=== PATIENT | male | born 1965 | race Caucasian/White ===

== ENCOUNTER 2021-01-23 10:12 | Inpatient (IN) | payer OTHER ==
[~2021-01-23] VITALS: Ht 175.3 cm; Wt 94.6 kg
[2021-01-23] MEDS ORDERED: METH10SO PO (10:27)
[2021-01-23] MEDS ORDERED: HTN MED PO (10:27)
[2021-01-23] MEDS ORDERED: ONDANSETRON HCL 4 MG/2 ML VIAL IVP ONE (11:00)
[2021-01-23] MEDS ORDERED: SODIUM CHLORIDE 0.9% 1,000 ML IV ONE ×2 (11:00→12:30)
[2021-01-23] MEDS ORDERED: LORazepam 1 MG TABLET PO ONE (11:00)
[2021-01-23 11:28] LABS: COVID AG,FIA SOURCE NASOPHARYNGEAL
[2021-01-23 11:31] LABS: BASOPHILS % (AUTO) 0.7 % (0.0-2.0); EOSINOPHILS % (AUTO) 0.2 % (1.0-6.0); HEMOGLOBIN 14.4 g/dL (13.5-17.5); LYMPHOCYTES # (AUTO) 2.1 K/uL (1.0-4.8); LYMPHOCYTES % (AUTO) 24.5 % (22.0-44.0); MEAN CORPUSCULAR HGB CONC 34.3 G/dL (31.0-37.0); MEAN CORPUSCULAR VOLUME 90 fL (80-100); MONOCYTES # (AUTO) 0.6 K/uL (0.1-1.0); MONOCYTES % (AUTO) 6.7 % (2.0-9.0); NEUTROPHILS # (AUTO) 5.8 K/uL (1.8-7.7); NEUTROPHILS % (AUTO) 67.9 % (40.0-70.0); PLATELET COUNT (AUTO) 281 K/uL (150-450); RED BLOOD CELL COUNT(AUTO) 4.65 MIL/uL (4.50-5.90)
[2021-01-23 11:40] LABS: ANION GAP 5 mmol/L (8-16); CALCIUM, TOTAL 8.7 mg/dL (8.8-10.5); CARBON DIOXIDE 29 mmol/L (22-29); CHLORIDE 98 mmol/L (98-107); CREATININE 0.84 mg/dL (0.60-1.30); GLOMERULAR FILTR. RATE CALC > 60 mL/min (>60); GLUCOSE,RANDOM 101 mg/dL (70-110); POTASSIUM 3.2 mmol/L (3.5-5.1); SODIUM SERUM 132 mmol/L (136-145); UREA NITROGEN, BLOOD 10 mg/dL (7-18)
[2021-01-23 11:49] LABS: ALANINE AMINOTRANSFERASE 20 U/L (12-78); ALBUMIN 3.8 g/dL (3.4-5.0); ALKALINE PHOSPHATASE 88 U/L (46-116); ASPARTATE AMINOTRANSFERASE 14 U/L (15-37); BILIRUBIN,TOTAL 0.4 mg/dL (0.1-1.0); TOTAL PROTEIN, SERUM 7.7 g/dL (6.4-8.2)
[2021-01-23] MEDS ORDERED: POTASSIUM CHLORIDE 20 MEQ ER TABLET PO ONE (12:00)
[2021-01-23 12:27] LABS: AMPHET/METH SCREEN,URINE POSITIVE (NEGATIVE); BARBITURATE SCREEN, URINE NEGATIVE (NEGATIVE); BENZODIAZEPINES SCREEN,URINE POSITIVE (NEGATIVE); CANNABINOID SCREEN,URINE NEGATIVE (NEGATIVE); COCAINE SCREEN,URINE NEGATIVE (NEGATIVE); METHADONE SCREEN, URINE POSITIVE (NEGATIVE); OPIATE SCREEN,URINE POSITIVE (NEGATIVE)
[2021-01-23] MEDS ORDERED: POTASSIUM CHLORIDE 20 MEQ ER TABLET PO PRN (12:30)
[2021-01-23] MEDS ORDERED: POTASSIUM CHL 10 MEQ/WATER 50 ML IV PRN (12:30)
[2021-01-23 12:35] LABS: PHENCYCLIDINE SCREEN,URINE NEGATIVE (NEGATIVE)
[2021-01-23] MEDS: DULoxetine HCL 30 MG CAPSULE PO SCH (13:11)
[2021-01-23] MEDS: METHADONE HCL 10 MG TABLET PO SCH (13:12)
[2021-01-23] MEDS: HEPARIN SODIUM,PORCINE 5,000 UNITS/ML VIAL SQ SCH ×2 (15:48→23:34)
[2021-01-23 17:07] VITALS: BP 133/89
[2021-01-23] MEDS ORDERED: PNEUMOCOCCAL VACCINE POLYVALENT 0.5 ML VIAL [PPSV23] IM. ONE (18:00)
[2021-01-23 19:30] VITALS: BP 114/67
[2021-01-23] MEDS: ZOLPIDEM TARTRATE 5 MG TABLET PO PRN (23:46)
[2021-01-24] MEDS: ACETAMINOPHEN 325 MG TABLET PO PRN ×2 (04:02→08:21)
[2021-01-24 04:05] VITALS: BP 110/71
[2021-01-24] MEDS: METHADONE HCL 10 MG TABLET PO SCH (08:20)
[2021-01-24] MEDS: FAMOTIDINE 20 MG TABLET PO SCH (08:21)
[2021-01-24] MEDS: DULoxetine HCL 30 MG CAPSULE PO SCH (08:21)
[2021-01-24] MEDS: HEPARIN SODIUM,PORCINE 5,000 UNITS/ML VIAL SQ SCH ×2 (08:21→16:54)
[2021-01-24 08:33] VITALS: BP 111/71
[2021-01-24] MEDS: MAGNESIUM HYDROXIDE SUSPENSION 30 ML UDCUP PO PRN (17:54)
[2021-01-24 19:21] VITALS: BP 114/69
[2021-01-25] MEDS: HEPARIN SODIUM,PORCINE 5,000 UNITS/ML VIAL SQ SCH ×4 (00:13→23:25)
[2021-01-25 05:11] VITALS: BP 117/80
[2021-01-25 08:07] VITALS: BP 122/74
[2021-01-25] MEDS: MAGNESIUM HYDROXIDE SUSPENSION 30 ML UDCUP PO PRN (08:36)
[2021-01-25] MEDS: FAMOTIDINE 20 MG TABLET PO SCH (08:36)
[2021-01-25] MEDS: DULoxetine HCL 30 MG CAPSULE PO SCH (08:36)
[2021-01-25] MEDS: METHADONE HCL 10 MG TABLET PO SCH (08:36)
[2021-01-25 19:40] VITALS: BP 111/72
[2021-01-25] MEDS: ZOLPIDEM TARTRATE 5 MG TABLET PO PRN (20:09)
[2021-01-26 04:20] VITALS: BP 102/56
[2021-01-26 08:03] VITALS: BP 98/56
[2021-01-26] MEDS: METHADONE HCL 10 MG TABLET PO SCH (08:52)
[2021-01-26] MEDS: HEPARIN SODIUM,PORCINE 5,000 UNITS/ML VIAL SQ SCH ×3 (08:53→23:09)
[2021-01-26] MEDS: DULoxetine HCL 30 MG CAPSULE PO SCH (08:53)
[2021-01-26] MEDS: FAMOTIDINE 20 MG TABLET PO SCH (08:53)
[2021-01-26 17:14] VITALS: BP 94/62
[2021-01-26 20:11] VITALS: BP 102/66
[2021-01-26] MEDS: ZOLPIDEM TARTRATE 5 MG TABLET PO PRN (22:54)
[2021-01-27 04:00] VITALS: BP 96/54
[2021-01-27 08:00] VITALS: BP 99/52
[2021-01-27] MEDS: HEPARIN SODIUM,PORCINE 5,000 UNITS/ML VIAL SQ SCH ×2 (08:22→16:17)
[2021-01-27] MEDS: DULoxetine HCL 30 MG CAPSULE PO SCH (08:23)
[2021-01-27] MEDS: FAMOTIDINE 20 MG TABLET PO SCH (08:23)
[2021-01-27] MEDS: ACETAMINOPHEN 325 MG TABLET PO PRN (08:30)
[2021-01-27] MEDS ORDERED: METHADONE HCL 10 MG TABLET PO SCH (09:00)
[2021-01-27] MEDS: TraMADol HCL 50 MG TABLET PO PRN ×2 (09:59→18:21)
[2021-01-27] MEDS: MIRTAZAPINE 15 MG TABLET PO SCH (20:12)
[2021-01-27] MEDS: ZOLPIDEM TARTRATE 5 MG TABLET PO PRN (20:13)
[2021-01-27 20:21] VITALS: BP 96/54
[2021-01-28 03:46] VITALS: BP 100/58
[2021-01-28 08:15] VITALS: BP 101/66
[2021-01-28] MEDS: TraMADol HCL 50 MG TABLET PO PRN ×2 (08:20→16:32)
[2021-01-28] MEDS: FAMOTIDINE 20 MG TABLET PO SCH (08:20)
[2021-01-28] MEDS: HEPARIN SODIUM,PORCINE 5,000 UNITS/ML VIAL SQ SCH ×4 (08:22→23:28)
[2021-01-28] MEDS ORDERED: DULoxetine HCL 60 MG CAPSULE PO SCH (09:00)
[2021-01-28] MEDS: ACETAMINOPHEN 325 MG TABLET PO PRN (15:08)
[2021-01-28] MEDS: HydrOXYzine PAMOATE 50 MG CAPSULE PO PRN ×2 (15:11→22:51)
[2021-01-28 20:10] VITALS: BP 104/70
[2021-01-28] MEDS: MIRTAZAPINE 15 MG TABLET PO SCH (20:20)
[2021-01-28] MEDS: ZOLPIDEM TARTRATE 5 MG TABLET PO PRN (22:51)
[2021-01-29 05:30] VITALS: BP 99/69
[2021-01-29] MEDS: FAMOTIDINE 20 MG TABLET PO SCH (08:16)
[2021-01-29] MEDS: HEPARIN SODIUM,PORCINE 5,000 UNITS/ML VIAL SQ SCH ×3 (08:16→23:31)
[2021-01-29 08:23] VITALS: BP 101/59
[2021-01-29] MEDS: HydrOXYzine PAMOATE 50 MG CAPSULE PO PRN ×2 (13:59→17:57)
[2021-01-29 19:40] VITALS: BP 121/72
[2021-01-29] MEDS: MIRTAZAPINE 15 MG TABLET PO SCH (19:40)
[2021-01-29] MEDS: ZOLPIDEM TARTRATE 5 MG TABLET PO PRN (19:40)
[2021-01-30 04:30] VITALS: BP 104/55
[2021-01-30] MEDS: HydrOXYzine PAMOATE 50 MG CAPSULE PO PRN ×3 (06:54→17:57)
[2021-01-30] MEDS: ACETAMINOPHEN 325 MG TABLET PO PRN ×2 (08:14→17:17)
[2021-01-30] MEDS: FAMOTIDINE 20 MG TABLET PO SCH (08:14)
[2021-01-30] MEDS: HEPARIN SODIUM,PORCINE 5,000 UNITS/ML VIAL SQ SCH ×2 (08:14→16:26)
[2021-01-30 08:47] VITALS: BP 100/57
[2021-01-30] MEDS: TraMADol HCL 50 MG TABLET PO PRN (16:26)
[2021-01-30] MEDS: ZOLPIDEM TARTRATE 5 MG TABLET PO PRN (19:50)
[2021-01-30] MEDS: MIRTAZAPINE 30 MG TABLET PO SCH (19:50)
[2021-01-30 20:18] VITALS: BP 128/90
[2021-01-31 04:40] VITALS: BP 102/60
[2021-01-31] MEDS: TraMADol HCL 50 MG TABLET PO PRN ×2 (04:41→15:13)
[2021-01-31 07:29] VITALS: BP 105/66
[2021-01-31] MEDS: HEPARIN SODIUM,PORCINE 5,000 UNITS/ML VIAL SQ SCH ×4 (08:36→23:57)
[2021-01-31] MEDS: FAMOTIDINE 20 MG TABLET PO SCH (08:36)
[2021-01-31] MEDS: ONDANSETRON HCL 4 MG/2 ML VIAL IVP PRN ×3 (08:37→20:21)
[2021-01-31] MEDS: FLUoxetine HCL 20 MG CAPSULE PO SCH (10:45)
[2021-01-31] MEDS: HydrOXYzine PAMOATE 50 MG CAPSULE PO PRN ×2 (18:39→23:57)
[2021-01-31] MEDS: ZOLPIDEM TARTRATE 5 MG TABLET PO PRN (19:34)
[2021-01-31] MEDS: MIRTAZAPINE 30 MG TABLET PO SCH (19:35)
[2021-01-31 20:47] VITALS: BP 128/69
[2021-01-31] MEDS: ACETAMINOPHEN 325 MG TABLET PO PRN (23:57)
[2021-02-01] MEDS: ONDANSETRON HCL 4 MG/2 ML VIAL IVP PRN (02:39)
[2021-02-01] MEDS: HydrOXYzine PAMOATE 50 MG CAPSULE PO PRN ×2 (03:31→16:36)
[2021-02-01] MEDS: ACETAMINOPHEN 325 MG TABLET PO PRN ×2 (03:31→18:43)
[2021-02-01 03:33] VITALS: BP 119/60
[2021-02-01 08:01] VITALS: BP 153/77
[2021-02-01] MEDS: HEPARIN SODIUM,PORCINE 5,000 UNITS/ML VIAL SQ SCH ×3 (08:30→23:49)
[2021-02-01] MEDS: FAMOTIDINE 20 MG TABLET PO SCH (08:30)
[2021-02-01] MEDS: FLUoxetine HCL 20 MG CAPSULE PO SCH (08:30)
[2021-02-01] MEDS: TraMADol HCL 50 MG TABLET PO PRN ×3 (08:36→23:49)
[2021-02-01 20:10] VITALS: BP 124/90
[2021-02-01] MEDS: ZOLPIDEM TARTRATE 5 MG TABLET PO PRN (20:10)
[2021-02-02 04:35] VITALS: BP 119/75
[2021-02-02 07:50] VITALS: BP 116/68
[2021-02-02] MEDS: FAMOTIDINE 20 MG TABLET PO SCH (08:02)
[2021-02-02] MEDS: FLUoxetine HCL 20 MG CAPSULE PO SCH (08:03)
[2021-02-02] MEDS: HEPARIN SODIUM,PORCINE 5,000 UNITS/ML VIAL SQ SCH ×3 (08:03→23:21)
[2021-02-02] MEDS: TraMADol HCL 50 MG TABLET PO PRN (08:04)
[2021-02-02] MEDS: ACETAMINOPHEN 325 MG TABLET PO PRN ×3 (12:09→23:17)
[2021-02-02] MEDS: HydrOXYzine PAMOATE 50 MG CAPSULE PO PRN (20:34)
[2021-02-02 20:53] VITALS: BP 114/70
[2021-02-03 05:05] VITALS: BP 138/71
[2021-02-03] MEDS: TraMADol HCL 50 MG TABLET PO PRN (05:18)
[2021-02-03] MEDS: HEPARIN SODIUM,PORCINE 5,000 UNITS/ML VIAL SQ SCH ×2 (08:00→08:34)
[2021-02-03 08:12] VITALS: BP 130/86
[2021-02-03] MEDS: FAMOTIDINE 20 MG TABLET PO SCH (08:34)
[2021-02-03] MEDS: FLUoxetine HCL 20 MG CAPSULE PO SCH (08:34)
[2021-02-03] MEDS: HydrOXYzine PAMOATE 50 MG CAPSULE PO PRN (08:34)
[2021-02-03] MEDS ORDERED: FAMO20 PO (09:26)
[2021-02-03] MEDS ORDERED: FLUO20CA36 PO (09:27)
[2021-02-03] MEDS ORDERED: HEPA500018 SQ (09:28)
[2021-02-03] MEDS ORDERED: ACET-3207 PO (09:29)
[2021-02-03] MEDS ORDERED: MOM30 PO (09:30)
[2021-02-03] MEDS ORDERED: TRAM50TA4 PO (09:31)
== END 2021-02-03 11:50 | DRG 897 ==
LOC: EMS 10:12 → 6S 12:21
PROVIDERS: ADMIT Internal Medicine; ATTEND Internal Medicine
PROC: 3E0234Z Introduction of Serum, Toxoid and Vaccine into Muscle, Percutaneous Approach (ICD-10-PCS; principal; 2021-01-23)
DX: F11.13 Opioid abuse with withdrawal (principal); F33.2 Major depressive disorder, recurrent severe without psychotic features; F15.20 Other stimulant dependence, uncomplicated; R45.851 Suicidal ideations; Z20.822 Contact with and (suspected) exposure to COVID-19; E87.6 Hypokalemia; I10 Essential (primary) hypertension; F17.210 Nicotine dependence, cigarettes, uncomplicated; G89.4 Chronic pain syndrome; F41.1 Generalized anxiety disorder; M54.9 Dorsalgia, unspecified; K30 Functional dyspepsia; Z88.8 Allergy status to other drugs, medicaments and biological substances; Z79.899 Other long term (current) drug therapy; Z23 Encounter for immunization
CPT/HCPCS: 80053; 84132; 84484; 85025; 90732; 99285; G0480; J1644; J2405; J7030

== ENCOUNTER 2021-02-04 15:07 | Inpatient (IN) | payer OTHER ==
[~2021-02-04] VITALS: Ht 180.3 cm; Wt 90.9 kg
[~2021-02-04 15:07] MED LIST: ACET-3207 PO; FAMO20 PO; FLUO20CA36 PO; HEPA500018 SQ; MOM30 PO; TRAM50TA4 PO
[2021-02-04 15:35] LABS: COVID AG,FIA SOURCE NASOPHARYNGEAL
[2021-02-04 16:05] LABS: BASOPHILS % (AUTO) 0.5 % (0.0-2.0); EOSINOPHILS % (AUTO) 0.3 % (1.0-6.0); HEMATOCRIT 42.4 % (41-53); HEMOGLOBIN 14.2 g/dL (13.5-17.5); LYMPHOCYTES # (AUTO) 2.3 K/uL (1.0-4.8); LYMPHOCYTES % (AUTO) 27.1 % (22.0-44.0); MEAN CORPUSCULAR HEMOGLOBIN 30.3 pg (26.0-34.0); MEAN CORPUSCULAR HGB CONC 33.6 G/dL (31.0-37.0); MEAN CORPUSCULAR VOLUME 90 fL (80-100); MONOCYTES # (AUTO) 0.8 K/uL (0.1-1.0); MONOCYTES % (AUTO) 9.6 % (2.0-9.0); NEUTROPHILS # (AUTO) 5.2 K/uL (1.8-7.7); NEUTROPHILS % (AUTO) 62.5 % (40.0-70.0); PLATELET COUNT (AUTO) 283 K/uL (150-450); RED CELL DISTRIBUTION WIDTH 13.1 % (11.5-14.5)
[2021-02-04 16:17] LABS: ANION GAP 10 mmol/L (8-16); CALCIUM, TOTAL 8.8 mg/dL (8.8-10.5); CARBON DIOXIDE 26 mmol/L (22-29); CHLORIDE 100 mmol/L (98-107); CREATININE 0.68 mg/dL (0.60-1.30); GLOMERULAR FILTR. RATE CALC > 60 mL/min (>60); GLUCOSE,RANDOM 105 mg/dL (70-110); POTASSIUM 3.8 mmol/L (3.5-5.1); SODIUM SERUM 136 mmol/L (136-145); UREA NITROGEN, BLOOD 14 mg/dL (7-18)
[2021-02-04 16:23] LABS: ALANINE AMINOTRANSFERASE 57 U/L (12-78); ALBUMIN 3.8 g/dL (3.4-5.0); ALKALINE PHOSPHATASE 84 U/L (46-116); ASPARTATE AMINOTRANSFERASE 28 U/L (15-37); BILIRUBIN,TOTAL 0.4 mg/dL (0.1-1.0); TOTAL PROTEIN, SERUM 7.7 g/dL (6.4-8.2)
[2021-02-04 20:30] VITALS: BP 98/58
[2021-02-04] MEDS ORDERED: FLUoxetine HCL 20 MG CAPSULE PO SCH (21:00)
[2021-02-04] MEDS: ZOLPIDEM TARTRATE 5 MG TABLET PO PRN (21:47)
[2021-02-04] MEDS: ACETAMINOPHEN 325 MG TABLET PO PRN (21:47)
[2021-02-04] MEDS: MAGNESIUM HYDROXIDE SUSPENSION 30 ML UDCUP PO PRN (21:48)
[2021-02-05 04:44] VITALS: BP 92/56
[2021-02-05 07:30] VITALS: BP 104/57
[2021-02-05] MEDS ORDERED: FAMOTIDINE 20 MG TABLET PO SCH (09:00)
[2021-02-05] MEDS: HydrOXYzine PAMOATE 50 MG CAPSULE PO PRN (13:58)
[2021-02-05] MEDS ORDERED: TraZODone HCL 50 MG TABLET PO PRN (14:00)
[2021-02-05] MEDS ORDERED: HALOPERIDOL 5 MG TABLET PO PRN (14:00)
[2021-02-05] MEDS ORDERED: FLUoxetine HCL 20 MG CAPSULE PO SCH (14:00)
[2021-02-05 20:18] VITALS: BP 117/78
[2021-02-05] MEDS: ZOLPIDEM TARTRATE 5 MG TABLET PO PRN (20:46)
[2021-02-05] MEDS: OLANZapine 5 MG TABLET PO SCH (20:46)
[2021-02-05] MEDS: MAGNESIUM HYDROXIDE SUSPENSION 30 ML UDCUP PO PRN (20:46)
[2021-02-06] MEDS: HydrOXYzine PAMOATE 50 MG CAPSULE PO PRN ×2 (03:05→23:57)
[2021-02-06 04:16] VITALS: BP 120/70
[2021-02-06 07:52] VITALS: BP 98/56
[2021-02-06] MEDS: FLUoxetine HCL 20 MG CAPSULE PO SCH (08:03)
[2021-02-06] MEDS ORDERED: QUEtiapine FUMARATE 25 MG TABLET PO ONE (19:45)
[2021-02-06 19:50] VITALS: BP 124/79
[2021-02-06] MEDS: ZOLPIDEM TARTRATE 5 MG TABLET PO PRN (20:46)
[2021-02-06] MEDS: OLANZapine 5 MG TABLET PO SCH (20:46)
[2021-02-06] MEDS: MAGNESIUM HYDROXIDE SUSPENSION 30 ML UDCUP PO PRN (21:23)
[2021-02-07 03:55] VITALS: BP 118/66
[2021-02-07 08:10] VITALS: BP 112/76
[2021-02-07] MEDS: FLUoxetine HCL 20 MG CAPSULE PO SCH (08:47)
[2021-02-07] MEDS: ACETAMINOPHEN 325 MG TABLET PO PRN (08:48)
[2021-02-07] MEDS ORDERED: FLUO20CA36 PO (10:49)
[2021-02-07] MEDS ORDERED: OLAN5TAB52 PO (10:49)
[2021-02-07] MEDS ORDERED: MOM30 PO (10:51)
[2021-02-07] MEDS ORDERED: ACET-3207 PO (10:51)
[2021-02-07] MEDS: HydrOXYzine PAMOATE 50 MG CAPSULE PO PRN (11:42)
== END 2021-02-07 15:50 | DRG 885 ==
LOC: EMS 15:07 → 6S 15:19
PROVIDERS: ADMIT Internal Medicine; ATTEND Internal Medicine
DX: F25.1 Schizoaffective disorder, depressive type (principal); R45.851 Suicidal ideations; Z20.822 Contact with and (suspected) exposure to COVID-19; I10 Essential (primary) hypertension; G89.29 Other chronic pain; M54.9 Dorsalgia, unspecified; F17.210 Nicotine dependence, cigarettes, uncomplicated; F19.10 Other psychoactive substance abuse, uncomplicated
CPT/HCPCS: 80053; 85025; 87081; 99285; G0480

== ENCOUNTER 2021-02-08 12:54 | Emergency (ER) | payer OTHER ==
[~2021-02-08] VITALS: Ht 180.3 cm; Wt 96.4 kg
[~2021-02-08 12:54] MED LIST changes: -FAMO20 PO; -HEPA500018 SQ; +OLAN5TAB52 PO; -TRAM50TA4 PO
[2021-02-08] MEDS ORDERED: ACETAMINOPHEN 500 MG TABLET PO ONE (14:15)
[2021-02-08 14:22] VITALS: BP 122/77
== END 2021-02-08 14:28 | disposition home or self-care (01) ==
LOC: EMS 13:08
DX: F32.9 Major depressive disorder, single episode, unspecified (principal); G89.29 Other chronic pain; M54.9 Dorsalgia, unspecified; I10 Essential (primary) hypertension; F17.210 Nicotine dependence, cigarettes, uncomplicated; F11.90 Opioid use, unspecified, uncomplicated; Z88.6 Allergy status to analgesic agent
CPT/HCPCS: 99284; Z7502; Z7610